=== PATIENT | female | born 1965 | race Caucasian/White ===

== ENCOUNTER 2016-05-06 13:16 | Inpatient (IN) | payer OTHER, MEDICARE ==
[~2016-05-06] VITALS: Ht 165.1 cm; Wt 103.4 kg
[~2016-05-06 13:16] MED LIST: ABILIFY10 MG PO; ABILIFY30 MG PO; ASPIRIN CHEWABL81 MG PO; ASPIRIN81 MG PO; ATARAX25 MG PO; AUGMENTIN 500-1 EACH PO; BIOFREEZE89 ML TOP; BISOPROLOL FUMAR5 MG PO; BUSPIRONE HCL15 MG PO; CARAFATE1 GM PO; CEFDINIR300 MG PO; CELEXA20 MG PO; CETIRIZINE HCL10 MG PO; COLACE100 MG PO; COLESTID 1GM TAB1 GM PO; DEPAKOTE ER250 MG PO; DEPAKOTE250 MG PO; ESTRACE1 MG PO; ESTRADIOL-NORE1 EAC1 PO; GLIPIZIDE 5 MG (5 MG PO; IMDUR 30MG TABL30 MG PO; KLOR-CON 1010 MEQ PO; KLOR-CON M 1010 MEQ PO; LACTINEX1 EACH PO; LASIX40 MG PO; LEVAQUIN500 MG PO; LEVEMIR100 UNIT/1 SC; LEVSIN0.125 MG PO; LISINOPRIL2.5 MG PO; LOMOTIL 2.5-0.1 EACH PO; LOMOTIL1 EACH PO; LOTRONEX1 MG PO; LYRICA 50MG CAP50 MG PO; MEDROL 4MG DOSEP4 MG PO; MUCINEX D ER 61 EACH PO; NEURONTIN300 MG PO; NITROLINGUAL12 GM SL; NOVOLOG DO100 UNIT/M SC; NYSTATIN100000 UNI PO; PEPCID AC20 MG PO; PHENERGAN25 M1 PO; PLAVIX75 M1 PO; PLAVIX75 MG PO; PRAVACHOL20 MG PO; PRAVACHOL40 MG PO; PREDNISONE 20MG20 MG PO; PROMETRIUM200 MG PO; PROTONIX20 MG PO; PROTONIX40 MG PO; PROVIGIL200 MG PO; SYMBICORT 1601 PUFFS INH; TESSALON PERLE100 MG PO; TRAZODONE 100M100 MG PO; TUDORZA PRESS400 MCG INH; VICODIN 10/3251 EACH PO; ZESTRIL2.5 MG PO; ZITHROMAX500 MG PO; ZOFRAN4 MG PO; ZYRTEC10 MG PO
[2016-05-06 16:17] LABS: BASOPHIL 0.5 % (0-2); EOSINOPHIL 2.7 % (0-5); HCT 34.6 % (37.0-47.0); HGB 10.6 g/dl (12.5-16.0); LYMPHOCYTE 20.4 % (15-48); MCHC 30.6 g/dL (32.0-36.0); MONOCYTE 8.6 % (0-12); MPV 9.7 fL (6.0-9.5); NEUTROPHIL 67.8 % (41-80); PLT 172 K/uL (150-400); RBC 4.07 M/uL (4.20-5.40); RDW 18.7 % (11.5-14.0); WBC 4.4 K/uL (4.0-10.5)
[2016-05-06 16:22] LABS: INR 0.96 (0.9-1.2); PROTHROMBIN TIME 12.4 SECONDS (11.7-14.0); PTT 27.1 SECONDS (23.2-31.4)
[2016-05-06 16:23] LABS: D-DIMER 0.44 ug/mLFEU (0.00-0.41)
[2016-05-06 16:35] LABS: ALBUMIN 3.5 g/dL (3.5-5.0); BILIRUBIN - TOTAL 0.3 mg/dL (0.1-1.0); GLOBULIN (CALCULATION) 2.6 g/dL (2.2-4.2); POTASSIUM 3.9 mmol/L (3.5-5.1); TOTAL PROTEIN 6.1 g/dL (6.4-8.3)
[2016-05-06 16:36] LABS: TROPONIN T < 0.010 ng/mL
[2016-05-06 16:40] LABS: PRO-BNP 467 pg/mL (0-125)
[2016-05-07 22:08] LABS: AMPHETAMINES NEGATIVE (NEGATIVE); BARBITURATES NEGATIVE (NEGATIVE); BENZODIAZEPINES NEGATIVE (NEGATIVE); COCAINE NEGATIVE (NEGATIVE); MARIJUANA (THC) NEGATIVE (NEGATIVE); METHADONE NEGATIVE (NEGATIVE); TRICYCLIC ANTIDEPRESSANT NEGATIVE (NEGATIVE)
[2016-05-08 04:20] LABS: HCT 34.9 % (37.0-47.0); HGB 10.7 g/dl (12.5-16.0); MCH 25.7 pg (25.0-31.0); MCHC 30.7 g/dL (32.0-36.0); MCV 83.7 fL (78.0-100.0); MPV 9.2 fL (6.0-9.5); RBC 4.17 M/uL (4.20-5.40); RDW 18.8 % (11.5-14.0); WBC 5.7 K/uL (4.0-10.5)
[2016-05-08 04:39] LABS: POTASSIUM 5.1 mmol/L (3.5-5.1)
[2016-05-09 05:25] LABS: HCT 37.4 % (37.0-47.0); HGB 11.6 g/dl (12.5-16.0); MCV 83.9 fL (78.0-100.0); RBC 4.46 M/uL (4.20-5.40); RDW 18.9 % (11.5-14.0); WBC 6.8 K/uL (4.0-10.5)
[2016-05-09 05:51] LABS: POTASSIUM 3.7 mmol/L (3.5-5.1)
--- NOTE | 2016-05-10 14:37 | NUR ---
REVIEWED DISCHARGE INSTRUCTIONS, MEDICATIONS, APPT TIMES WITH PT VERBALIZED UNDERSTANDING, PORT DEACCESSED WITHOUT DIFFICULTY
[2016-05-10] MEDS ORDERED: TUDORZA PRESS400 MCG INH (15:18)
[2016-05-10] MEDS ORDERED: LOMOTIL1 EACH PO (15:19)
[2016-05-10] MEDS ORDERED: BUMEX1 MG PO (15:19)
[2016-05-10] MEDS ORDERED: VOLTAREN **OUT75 MG PO (15:19)
[2016-05-10] MEDS ORDERED: ZYRTEC10 MG PO (15:20)
[2016-05-10] MEDS ORDERED: CELEXA20 MG PO (15:20)
[2016-05-10] MEDS ORDERED: GLUCOSAMINE1000 MG PO (15:21)
[2016-05-10] MEDS ORDERED: NEURONTIN300 MG PO (15:21)
[2016-05-10] MEDS ORDERED: ZOFRAN4 MG PO (15:22)
[2016-05-10] MEDS ORDERED: PROTONIX40 MG PO (15:22)
[2016-05-10] MEDS ORDERED: CARAFATE1 GM PO (15:24)
[2016-05-10] MEDS ORDERED: POTASSIUM CHLO10 MEQ PO (15:24)
[2016-05-10] MEDS ORDERED: TRAZODONE 50MG50 MG PO (15:25)
[2016-05-10] MEDS ORDERED: LACTINEX1 EACH PO (15:26)
[2016-05-10] MEDS ORDERED: PREDNISONE 10MG10 MG PO (15:27)
[2016-05-10] MEDS ORDERED: CHANTIX1 MG PO (15:28)
[2016-05-10] MEDS ORDERED: VENTOLIN (2.5 MG/3 M INH (15:29)
[2016-06-30] MEDS ORDERED: ISOSORBIDE MONO60 MG PO (13:15)
[2016-06-30] MEDS ORDERED: LASIX40 MG PO (13:30)
[2016-06-30] MEDS ORDERED: DEPAKOTE ER250 MG PO (13:31)
[2016-06-30] MEDS ORDERED: DESYREL50 MG PO (13:32)
[2016-06-30] MEDS ORDERED: PRAVACHOL40 MG PO (13:33)
[2016-06-30] MEDS ORDERED: MUCINEX 600MG600 MG PO (13:33)
[2016-06-30] MEDS ORDERED: LEVAQUIN750 MG PO (13:34)
[2016-09-08] MEDS ORDERED: AMPICILLIN TRI500 M1 PO (08:41)
[2016-09-08] MEDS ORDERED: STERAPRED PO (08:44)
[2016-09-24] MEDS ORDERED: FLONASE ALLER15.8 ML IN (11:00)
[2016-09-24] MEDS ORDERED: PREDNISONE 20MG20 MG PO (11:00)
[2016-10-17] MEDS ORDERED: PREDNISONE 10MG10 MG PO (12:01)
[2016-10-17] MEDS ORDERED: VIBRAMYCIN100 MG PO (12:03)
[2016-10-26] MEDS ORDERED: GLUCOTROL10 MG PO ×2 (08:44→10:24)
[2016-10-26] MEDS ORDERED: TRESIBA FL100 UNIT/1 SQ (10:32)
[2016-10-26] MEDS ORDERED: PREDNISONE TAPER PO (10:33)
[2016-10-26] MEDS ORDERED: NOVOLOG VI100 UNIT/1 SQ (13:10)
[2016-10-26] MEDS ORDERED: XANAX0.5 MG PO (13:12)
[2016-11-06] MEDS ORDERED: PHENERGAN25 M1 PO (11:59)
[2016-11-06] MEDS ORDERED: TUDORZA PRESS400 MCG INH (12:02)
[2016-11-06] MEDS ORDERED: DALIRESP500 MCG PO (12:02)
[2016-11-06] MEDS ORDERED: SPIRIVA18 MCG INH (12:03)
[2016-11-06] MEDS ORDERED: BUMEX1 MG PO (12:05)
== END 2016-05-10 14:19 | disposition home health service (06) | DRG 189 ==
LOC: FER 13:16 → FMS 18:00
PROVIDERS: Internal Medicine; Nurse Practitioner Family; ADMIT Internal Medicine
DX: J96.21 Acute and chronic respiratory failure with hypoxia (principal); E11.65 Type 2 diabetes mellitus with hyperglycemia; Z99.81 Dependence on supplemental oxygen; J44.1 Chronic obstructive pulmonary disease with (acute) exacerbation; I25.10 Atherosclerotic heart disease of native coronary artery without angina pectoris; F17.210 Nicotine dependence, cigarettes, uncomplicated; I10 Essential (primary) hypertension; E66.9 Obesity, unspecified; E78.5 Hyperlipidemia, unspecified; G47.33 Obstructive sleep apnea (adult) (pediatric); M54.5 Low back pain; G89.29 Other chronic pain; Z88.5 Allergy status to narcotic agent; Z91.040 Latex allergy status; Z88.8 Allergy status to other drugs, medicaments and biological substances; Z79.4 Long term (current) use of insulin; Z91.14 Patient's other noncompliance with medication regimen; Z79.899 Other long term (current) drug therapy; Z95.1 Presence of aortocoronary bypass graft; Z68.39 Body mass index [BMI] 39.0-39.9, adult
CPT/HCPCS: 36415; 36600; 71010; 71020; 80048; 80053; 80305; 82140; 82150; 82803; 82962; 83036; 83690; 83880; 84484; 85025; 85379; 85610; 85730; 87040; 93005; 94640; 94660; 94760; 94762; 97110; 97116; 97162; 97165; 97530-GP; C9113; J1644; J1815; J1885; J1956; J2930

== ENCOUNTER 2016-05-19 13:16 | Emergency (ER) | payer OTHER, MEDICARE ==
[~2016-05-19 13:16] MED LIST changes: +BUMEX1 MG PO; +CHANTIX1 MG PO; +GLUCOSAMINE1000 MG PO; +POTASSIUM CHLO10 MEQ PO; +PREDNISONE 10MG10 MG PO; +TRAZODONE 50MG50 MG PO; +VENTOLIN (2.5 MG/3 M INH; +VOLTAREN **OUT75 MG PO
[2016-05-19 14:49] LABS: BASOPHIL 0.5 % (0-2); EOSINOPHIL 1.2 % (0-5); HCT 34.8 % (37.0-47.0); HGB 10.7 g/dl (12.5-16.0); LYMPHOCYTE 14.3 % (15-48); MCH 25.7 pg (25.0-31.0); MCHC 30.7 g/dL (32.0-36.0); MCV 83.7 fL (78.0-100.0); MONOCYTE 10.3 % (0-12); MPV 9.5 fL (6.0-9.5); NEUTROPHIL 73.7 % (41-80); PLT 212 K/uL (150-400); RBC 4.16 M/uL (4.20-5.40); RDW 18.9 % (11.5-14.0)
[2016-05-19 14:50] LABS: WBC 6.5 K/uL (4.0-10.5)
[2016-05-19 14:59] LABS: INR 0.96 (0.9-1.2); PROTHROMBIN TIME 12.4 SECONDS (11.7-14.0)
[2016-05-19 15:07] LABS: ALBUMIN 3.7 g/dL (3.5-5.0); BILIRUBIN - TOTAL 0.3 mg/dL (0.1-1.0); CREATININE 0.9 mg/dL (0.5-1.0); GLOBULIN (CALCULATION) 2.7 g/dL (2.2-4.2); MAGNESIUM 1.87 mg/dL (1.40-2.10); POTASSIUM 4.6 mmol/L (3.5-5.1); TOTAL PROTEIN 6.4 g/dL (6.4-8.3)
[2016-05-19 15:11] LABS: CKMB 2.03 ng/mL (0.97-4.94); MYOGLOBIN 44 ng/mL (26-65); PRO-BNP 78 pg/mL (0-125); TROPONIN T < 0.010 ng/mL
[2016-06-30] MEDS ORDERED: ISOSORBIDE MONO60 MG PO (13:15)
[2016-06-30] MEDS ORDERED: LASIX40 MG PO (13:30)
[2016-06-30] MEDS ORDERED: DEPAKOTE ER250 MG PO (13:31)
[2016-06-30] MEDS ORDERED: DESYREL50 MG PO (13:32)
[2016-06-30] MEDS ORDERED: PRAVACHOL40 MG PO (13:33)
[2016-06-30] MEDS ORDERED: MUCINEX 600MG600 MG PO (13:33)
[2016-06-30] MEDS ORDERED: LEVAQUIN750 MG PO (13:34)
[2016-09-08] MEDS ORDERED: AMPICILLIN TRI500 M1 PO (08:41)
[2016-09-08] MEDS ORDERED: STERAPRED PO (08:44)
[2016-09-24] MEDS ORDERED: FLONASE ALLER15.8 ML IN (11:00)
[2016-09-24] MEDS ORDERED: PREDNISONE 20MG20 MG PO (11:00)
[2016-10-17] MEDS ORDERED: PREDNISONE 10MG10 MG PO (12:01)
[2016-10-17] MEDS ORDERED: VIBRAMYCIN100 MG PO (12:03)
[2016-10-26] MEDS ORDERED: GLUCOTROL10 MG PO ×2 (08:44→10:24)
[2016-10-26] MEDS ORDERED: TRESIBA FL100 UNIT/1 SQ (10:32)
[2016-10-26] MEDS ORDERED: PREDNISONE TAPER PO (10:33)
[2016-10-26] MEDS ORDERED: NOVOLOG VI100 UNIT/1 SQ (13:10)
[2016-10-26] MEDS ORDERED: XANAX0.5 MG PO (13:12)
[2016-11-06] MEDS ORDERED: PHENERGAN25 M1 PO (11:59)
[2016-11-06] MEDS ORDERED: TUDORZA PRESS400 MCG INH (12:02)
[2016-11-06] MEDS ORDERED: DALIRESP500 MCG PO (12:02)
[2016-11-06] MEDS ORDERED: SPIRIVA18 MCG INH (12:03)
[2016-11-06] MEDS ORDERED: BUMEX1 MG PO (12:05)
== END 2016-05-19 17:45 | disposition home or self-care (01) ==
LOC: FER 13:16
PROVIDERS: Emergency Medicine
DX: R07.9 Chest pain, unspecified (principal); S61.011A Laceration without foreign body of right thumb without damage to nail, initial encounter; R06.02 Shortness of breath; E11.9 Type 2 diabetes mellitus without complications; I25.10 Atherosclerotic heart disease of native coronary artery without angina pectoris; I11.9 Hypertensive heart disease without heart failure; J45.909 Unspecified asthma, uncomplicated; J44.9 Chronic obstructive pulmonary disease, unspecified; K21.9 Gastro-esophageal reflux disease without esophagitis; E78.5 Hyperlipidemia, unspecified; Z87.891 Personal history of nicotine dependence; Z82.49 Family history of ischemic heart disease and other diseases of the circulatory system; Z95.5 Presence of coronary angioplasty implant and graft
CPT/HCPCS: 36415; 71010; 80053; 82550; 82553; 83690; 83735; 83874; 83880; 84484; 85025; 85610; 85730; 90471; 90715; 93005

== ENCOUNTER 2016-05-24 10:21 | Emergency (ER) | payer OTHER, MEDICARE ==
[2016-05-24 10:51] LABS: BASOPHIL 0.3 % (0-2); EOSINOPHIL 1.3 % (0-5); LYMPHOCYTE 16.7 % (15-48); MCH 26.5 pg (25.0-31.0); MCHC 31.3 g/dL (32.0-36.0); MCV 84.7 fL (78.0-100.0); MONOCYTE 8.4 % (0-12); MPV 9.7 fL (6.0-9.5); NEUTROPHIL 73.3 % (41-80); PLT 208 K/uL (150-400); RBC 3.78 M/uL (4.20-5.40); RDW 19.5 % (11.5-14.0); WBC 6.3 K/uL (4.0-10.5)
[2016-05-24 10:56] LABS: INR 0.96 (0.9-1.2); PROTHROMBIN TIME 12.4 SECONDS (11.7-14.0); PTT 25.8 SECONDS (23.2-31.4)
[2016-05-24 11:05] LABS: MYOGLOBIN 34 ng/mL (26-65); TROPONIN T < 0.010 ng/mL
[2016-05-24 11:06] LABS: ALBUMIN 3.6 g/dL (3.5-5.0); BILIRUBIN - TOTAL 0.2 mg/dL (0.1-1.0); GLOBULIN (CALCULATION) 2.7 g/dL (2.2-4.2); MAGNESIUM 1.56 mg/dL (1.40-2.10); POTASSIUM 4.5 mmol/L (3.5-5.1); PRO-BNP 264 pg/mL (0-125); TOTAL PROTEIN 6.3 g/dL (6.4-8.3)
[2016-05-24 12:02] LABS: BILIRUBIN NEGATIVE (NEGATIVE); BLOOD NEGATIVE Ery/uL (NEGATIVE); CLARITY CLEAR (CLEAR); COLOR COLORLESS (YELLOW); GLUCOSE (U) 3+ mg/dL (NORMAL); KETONE (U) NEGATIVE (NEGATIVE); LEUKOCYTES NEGATIVE Leu/uL (NEGATIVE); NITRITE NEGATIVE (NEGATIVE); PROTEIN NEGATIVE (NEGATIVE); SPECIFIC GRAVITY <=1.005 (1.001-1.030); UROBILINOGEN 0.2 mg/dL (0.2-1.0); pH 6.5 (5.0-9.0)
[2016-05-24 12:18] LABS: LACTIC ACID 2.9 mmol/L (0.5-2.2)
[2016-06-30] MEDS ORDERED: ISOSORBIDE MONO60 MG PO (13:15)
[2016-06-30] MEDS ORDERED: LASIX40 MG PO (13:30)
[2016-06-30] MEDS ORDERED: DEPAKOTE ER250 MG PO (13:31)
[2016-06-30] MEDS ORDERED: DESYREL50 MG PO (13:32)
[2016-06-30] MEDS ORDERED: MUCINEX 600MG600 MG PO (13:33)
[2016-06-30] MEDS ORDERED: PRAVACHOL40 MG PO (13:33)
[2016-06-30] MEDS ORDERED: LEVAQUIN750 MG PO (13:34)
[2016-09-08] MEDS ORDERED: AMPICILLIN TRI500 M1 PO (08:41)
[2016-09-08] MEDS ORDERED: STERAPRED PO (08:44)
[2016-09-24] MEDS ORDERED: FLONASE ALLER15.8 ML IN (11:00)
[2016-09-24] MEDS ORDERED: PREDNISONE 20MG20 MG PO (11:00)
[2016-10-17] MEDS ORDERED: PREDNISONE 10MG10 MG PO (12:01)
[2016-10-17] MEDS ORDERED: VIBRAMYCIN100 MG PO (12:03)
[2016-10-26] MEDS ORDERED: GLUCOTROL10 MG PO ×2 (08:44→10:24)
[2016-10-26] MEDS ORDERED: TRESIBA FL100 UNIT/1 SQ (10:32)
[2016-10-26] MEDS ORDERED: PREDNISONE TAPER PO (10:33)
[2016-10-26] MEDS ORDERED: NOVOLOG VI100 UNIT/1 SQ (13:10)
[2016-10-26] MEDS ORDERED: XANAX0.5 MG PO (13:12)
[2016-11-06] MEDS ORDERED: PHENERGAN25 M1 PO (11:59)
[2016-11-06] MEDS ORDERED: TUDORZA PRESS400 MCG INH (12:02)
[2016-11-06] MEDS ORDERED: DALIRESP500 MCG PO (12:02)
[2016-11-06] MEDS ORDERED: SPIRIVA18 MCG INH (12:03)
[2016-11-06] MEDS ORDERED: BUMEX1 MG PO (12:05)
[2016-12-04] MEDS ORDERED: AZITHROMYCIN250 MG PO (13:14)
== END 2016-05-24 16:42 | disposition home or self-care (01) ==
LOC: FER 10:21
PROVIDERS: Emergency Medicine
DX: E11.65 Type 2 diabetes mellitus with hyperglycemia (principal); R00.0 Tachycardia, unspecified; R82.90 Unspecified abnormal findings in urine; J44.9 Chronic obstructive pulmonary disease, unspecified; Z88.5 Allergy status to narcotic agent; Z91.040 Latex allergy status; Z79.4 Long term (current) use of insulin
CPT/HCPCS: 36415; 71010; 80053; 81003; 82550; 82553; 83605; 83690; 83735; 83874; 83880; 84484; 85025; 85610; 85730; 87076; 87088; 87186; 93005; 93971; Q9967

== ENCOUNTER 2016-06-14 11:16 | Inpatient (IN) | payer OTHER, MEDICARE ==
[2016-06-14 20:41] LABS: BASOPHIL 0 % (0-2); EOSINOPHIL 0 % (0-5); HCT 30.9 % (37.0-47.0); HGB 9.3 g/dl (12.5-16.0); LYMPHOCYTE 5.5 % (15-48); MCH 25.9 pg (25.0-31.0); MCHC 30.1 g/dL (32.0-36.0); MCV 86.1 fL (78.0-100.0); MONOCYTE 0.5 % (0-12); MPV 8.5 fL (6.0-9.5); PLT 237 K/uL (150-400); RBC 3.59 M/uL (4.20-5.40); RDW 20.2 % (11.5-14.0); WBC 6.1 K/uL (4.0-10.5)
[2016-06-14 20:55] LABS: ALBUMIN 3.7 g/dL (3.5-5.0); BILIRUBIN - TOTAL 0.3 mg/dL (0.1-1.0); CREATININE 1.1 mg/dL (0.5-1.0); GLOBULIN (CALCULATION) 2.9 g/dL (2.2-4.2); MAGNESIUM 1.36 mg/dL (1.40-2.10); POTASSIUM 4.7 mmol/L (3.5-5.1); TOTAL PROTEIN 6.6 g/dL (6.4-8.3)
[2016-06-15 04:36] LABS: BASOPHIL 0 % (0-2); EOSINOPHIL 0 % (0-5); HCT 30.8 % (37.0-47.0); HGB 9.3 g/dl (12.5-16.0); MCH 25.8 pg (25.0-31.0); MCHC 30.2 g/dL (32.0-36.0); MCV 85.6 fL (78.0-100.0); MONOCYTE 1.8 % (0-12); MPV 8.6 fL (6.0-9.5); NEUTROPHIL 90.2 % (41-80); PLT 231 K/uL (150-400); RDW 20.2 % (11.5-14.0); WBC 6.1 K/uL (4.0-10.5)
[2016-06-15 04:53] LABS: MAGNESIUM 1.72 mg/dL (1.40-2.10); POTASSIUM 4.4 mmol/L (3.5-5.1)
[2016-06-16 05:06] LABS: HCT 32.8 % (37.0-47.0); HGB 9.7 g/dl (12.5-16.0); MCH 25.7 pg (25.0-31.0); MCHC 29.6 g/dL (32.0-36.0); MPV 9.1 fL (6.0-9.5); RBC 3.77 M/uL (4.20-5.40); RDW 20.1 % (11.5-14.0); WBC 8.2 K/uL (4.0-10.5)
[2016-06-16 05:21] LABS: POTASSIUM 4.1 mmol/L (3.5-5.1)
[2016-06-16] MEDS ORDERED: JANUVIA100 MG PO (13:42)
[2016-06-16] MEDS ORDERED: NORCO 5-325 TA1 EACH PO (13:43)
[2016-06-16] MEDS ORDERED: PREDNISONE 20MG20 MG PO (13:43)
[2016-06-16] MEDS ORDERED: VENTOLIN HFA IN18 GM INH (13:59)
[2016-06-16] MEDS ORDERED: LEVEMIR VI100 UNITS/ SQ (15:21)
[2016-06-16] MEDS ORDERED: LEVAQUIN250 MG PO (15:25)
[2016-06-30] MEDS ORDERED: ISOSORBIDE MONO60 MG PO (13:15)
[2016-06-30] MEDS ORDERED: LASIX40 MG PO (13:30)
[2016-06-30] MEDS ORDERED: DEPAKOTE ER250 MG PO (13:31)
[2016-06-30] MEDS ORDERED: DESYREL50 MG PO (13:32)
[2016-06-30] MEDS ORDERED: PRAVACHOL40 MG PO (13:33)
[2016-06-30] MEDS ORDERED: MUCINEX 600MG600 MG PO (13:33)
[2016-06-30] MEDS ORDERED: LEVAQUIN750 MG PO (13:34)
[2016-09-08] MEDS ORDERED: AMPICILLIN TRI500 M1 PO (08:41)
[2016-09-08] MEDS ORDERED: STERAPRED PO (08:44)
[2016-09-24] MEDS ORDERED: PREDNISONE 20MG20 MG PO (11:00)
[2016-09-24] MEDS ORDERED: FLONASE ALLER15.8 ML IN (11:00)
[2016-10-17] MEDS ORDERED: PREDNISONE 10MG10 MG PO (12:01)
[2016-10-17] MEDS ORDERED: VIBRAMYCIN100 MG PO (12:03)
[2016-10-26] MEDS ORDERED: GLUCOTROL10 MG PO ×2 (08:44→10:24)
[2016-10-26] MEDS ORDERED: TRESIBA FL100 UNIT/1 SQ (10:32)
[2016-10-26] MEDS ORDERED: PREDNISONE TAPER PO (10:33)
[2016-10-26] MEDS ORDERED: NOVOLOG VI100 UNIT/1 SQ (13:10)
[2016-10-26] MEDS ORDERED: XANAX0.5 MG PO (13:12)
[2016-11-06] MEDS ORDERED: PHENERGAN25 M1 PO (11:59)
[2016-11-06] MEDS ORDERED: TUDORZA PRESS400 MCG INH (12:02)
[2016-11-06] MEDS ORDERED: DALIRESP500 MCG PO (12:02)
[2016-11-06] MEDS ORDERED: SPIRIVA18 MCG INH (12:03)
[2016-11-06] MEDS ORDERED: BUMEX1 MG PO (12:05)
[2016-12-04] MEDS ORDERED: AZITHROMYCIN250 MG PO (13:14)
== END 2016-06-16 11:52 | disposition home health service (06) | DRG 189 ==
LOC: FER 11:16 → FTCU 17:42
PROVIDERS: Internal Medicine Cardiovascular Disease; ADMIT Internal Medicine
DX: J96.22 Acute and chronic respiratory failure with hypercapnia (principal); E11.40 Type 2 diabetes mellitus with diabetic neuropathy, unspecified; Z99.81 Dependence on supplemental oxygen; J44.1 Chronic obstructive pulmonary disease with (acute) exacerbation; F11.20 Opioid dependence, uncomplicated; I25.10 Atherosclerotic heart disease of native coronary artery without angina pectoris; Z91.19 Patient's noncompliance with other medical treatment and regimen; F17.210 Nicotine dependence, cigarettes, uncomplicated; I10 Essential (primary) hypertension; T38.0X5A Adverse effect of glucocorticoids and synthetic analogues, initial encounter; Z79.4 Long term (current) use of insulin; Z79.82 Long term (current) use of aspirin; Z79.01 Long term (current) use of anticoagulants; G47.33 Obstructive sleep apnea (adult) (pediatric); Z95.1 Presence of aortocoronary bypass graft; Z88.5 Allergy status to narcotic agent; Z91.040 Latex allergy status; E66.9 Obesity, unspecified; J96.21 Acute and chronic respiratory failure with hypoxia
CPT/HCPCS: 36415; 36600; 71010; 71020; 80048; 80053; 82803; 82962; 83036; 83735; 84484; 85025; 87804; 87899; 94010; 94640; 94660; 94664; 97162; J0456; J1815; J2930

== ENCOUNTER 2016-07-26 10:35 | Emergency (ER) | payer OTHER, MEDICARE ==
[~2016-07-26 10:35] MED LIST changes: +DESYREL50 MG PO; +ISOSORBIDE MONO60 MG PO; +JANUVIA100 MG PO; +LEVAQUIN250 MG PO; +LEVAQUIN750 MG PO; +LEVEMIR VI100 UNITS/ SQ; +MUCINEX 600MG600 MG PO; +NORCO 5-325 TA1 EACH PO; +VENTOLIN HFA IN18 GM INH
[2016-07-26 11:20] LABS: HCT 35.7 % (37.0-47.0); HGB 10.6 g/dl (12.5-16.0); MCH 25.5 pg (25.0-31.0); MCHC 29.7 g/dL (32.0-36.0); MPV 9.2 fL (6.0-9.5); RBC 4.15 M/uL (4.20-5.40); RDW 20.1 % (11.5-14.0); WBC 7.1 K/uL (4.0-10.5)
[2016-07-26 11:47] LABS: ALBUMIN 3.7 g/dL (3.5-5.0); BILIRUBIN - TOTAL 0.2 mg/dL (0.1-1.0); CREATININE 1.4 mg/dL (0.5-1.0); GLOBULIN (CALCULATION) 2.5 g/dL (2.2-4.2); POTASSIUM 4.4 mmol/L (3.5-5.1); TOTAL PROTEIN 6.2 g/dL (6.4-8.3)
[2016-09-08] MEDS ORDERED: AMPICILLIN TRI500 M1 PO (08:41)
[2016-09-08] MEDS ORDERED: STERAPRED PO (08:44)
[2016-09-24] MEDS ORDERED: FLONASE ALLER15.8 ML IN (11:00)
[2016-09-24] MEDS ORDERED: PREDNISONE 20MG20 MG PO (11:00)
[2016-10-17] MEDS ORDERED: PREDNISONE 10MG10 MG PO (12:01)
[2016-10-17] MEDS ORDERED: VIBRAMYCIN100 MG PO (12:03)
[2016-10-26] MEDS ORDERED: GLUCOTROL10 MG PO ×2 (08:44→10:24)
[2016-10-26] MEDS ORDERED: TRESIBA FL100 UNIT/1 SQ (10:32)
[2016-10-26] MEDS ORDERED: PREDNISONE TAPER PO (10:33)
[2016-10-26] MEDS ORDERED: NOVOLOG VI100 UNIT/1 SQ (13:10)
[2016-10-26] MEDS ORDERED: XANAX0.5 MG PO (13:12)
[2016-11-06] MEDS ORDERED: PHENERGAN25 M1 PO (11:59)
[2016-11-06] MEDS ORDERED: TUDORZA PRESS400 MCG INH (12:02)
[2016-11-06] MEDS ORDERED: DALIRESP500 MCG PO (12:02)
[2016-11-06] MEDS ORDERED: SPIRIVA18 MCG INH (12:03)
[2016-11-06] MEDS ORDERED: BUMEX1 MG PO (12:05)
[2016-12-04] MEDS ORDERED: AZITHROMYCIN250 MG PO (13:14)
== END 2016-07-26 15:25 | disposition home or self-care (01) ==
LOC: FER 10:35
PROVIDERS: Nurse Practitioner
DX: J44.1 Chronic obstructive pulmonary disease with (acute) exacerbation (principal); I11.9 Hypertensive heart disease without heart failure; M19.90 Unspecified osteoarthritis, unspecified site; F17.210 Nicotine dependence, cigarettes, uncomplicated; Z99.81 Dependence on supplemental oxygen; Z95.1 Presence of aortocoronary bypass graft; Z88.8 Allergy status to other drugs, medicaments and biological substances; Z91.040 Latex allergy status; Z79.51 Long term (current) use of inhaled steroids; Z79.82 Long term (current) use of aspirin; Z79.899 Other long term (current) drug therapy
CPT/HCPCS: 36415; 36600; 71020; 80053; 82803; 83880; 94640; J2930

== ENCOUNTER 2016-08-07 03:39 | Emergency (ER) | payer OTHER, MEDICARE ==
[2016-08-07 04:16] LABS: BASOPHIL 0.2 % (0-2); EOSINOPHIL 1.4 % (0-5); HCT 37.5 % (37.0-47.0); HGB 11.4 g/dl (12.5-16.0); LYMPHOCYTE 19.6 % (15-48); MCH 25.7 pg (25.0-31.0); MCHC 30.4 g/dL (32.0-36.0); MCV 84.5 fL (78.0-100.0); MONOCYTE 8.1 % (0-12); MPV 8.8 fL (6.0-9.5); NEUTROPHIL 70.7 % (41-80); PLT 274 K/uL (150-400); RBC 4.44 M/uL (4.20-5.40); RDW 19.1 % (11.5-14.0); WBC 8.5 K/uL (4.0-10.5)
[2016-08-07 04:48] LABS: PTT 25.8 SECONDS (23.2-31.4)
[2016-08-07 04:49] LABS: INR 0.92 (0.9-1.2)
[2016-08-07 04:53] LABS: TROPONIN T < 0.010 ng/mL
[2016-08-07 04:55] LABS: ALBUMIN 3.7 g/dL (3.5-5.0); BILIRUBIN - TOTAL 0.2 mg/dL (0.1-1.0); CREATININE 1.1 mg/dL (0.5-1.0); GLOBULIN (CALCULATION) 2.7 g/dL (2.2-4.2); POTASSIUM 3.9 mmol/L (3.5-5.1); TOTAL PROTEIN 6.4 g/dL (6.4-8.3)
[2016-08-07 04:56] LABS: PRO-BNP 136 pg/mL (0-125)
[2016-09-08] MEDS ORDERED: AMPICILLIN TRI500 M1 PO (08:41)
[2016-09-08] MEDS ORDERED: STERAPRED PO (08:44)
[2016-09-24] MEDS ORDERED: FLONASE ALLER15.8 ML IN (11:00)
[2016-09-24] MEDS ORDERED: PREDNISONE 20MG20 MG PO (11:00)
[2016-10-17] MEDS ORDERED: PREDNISONE 10MG10 MG PO (12:01)
[2016-10-17] MEDS ORDERED: VIBRAMYCIN100 MG PO (12:03)
[2016-10-26] MEDS ORDERED: GLUCOTROL10 MG PO ×2 (08:44→10:24)
[2016-10-26] MEDS ORDERED: TRESIBA FL100 UNIT/1 SQ (10:32)
[2016-10-26] MEDS ORDERED: PREDNISONE TAPER PO (10:33)
[2016-10-26] MEDS ORDERED: NOVOLOG VI100 UNIT/1 SQ (13:10)
[2016-10-26] MEDS ORDERED: XANAX0.5 MG PO (13:12)
[2016-11-06] MEDS ORDERED: PHENERGAN25 M1 PO (11:59)
[2016-11-06] MEDS ORDERED: DALIRESP500 MCG PO (12:02)
[2016-11-06] MEDS ORDERED: TUDORZA PRESS400 MCG INH (12:02)
[2016-11-06] MEDS ORDERED: SPIRIVA18 MCG INH (12:03)
[2016-11-06] MEDS ORDERED: BUMEX1 MG PO (12:05)
[2016-12-04] MEDS ORDERED: AZITHROMYCIN250 MG PO (13:14)
== END 2016-08-07 05:36 | disposition home or self-care (01) ==
LOC: FER 03:39
PROVIDERS: Emergency Medicine
DX: J44.1 Chronic obstructive pulmonary disease with (acute) exacerbation (principal); B37.2 Candidiasis of skin and nail; I11.9 Hypertensive heart disease without heart failure; I25.810 Atherosclerosis of coronary artery bypass graft(s) without angina pectoris; E11.9 Type 2 diabetes mellitus without complications; E78.5 Hyperlipidemia, unspecified; F17.210 Nicotine dependence, cigarettes, uncomplicated; Z87.19 Personal history of other diseases of the digestive system; Z88.5 Allergy status to narcotic agent; Z88.8 Allergy status to other drugs, medicaments and biological substances; Z91.040 Latex allergy status; Z79.51 Long term (current) use of inhaled steroids; Z79.84 Long term (current) use of oral hypoglycemic drugs; Z79.82 Long term (current) use of aspirin; Z79.02 Long term (current) use of antithrombotics/antiplatelets; Z79.899 Other long term (current) drug therapy; Z99.81 Dependence on supplemental oxygen; Z95.1 Presence of aortocoronary bypass graft
CPT/HCPCS: 36415; 36600; 71010; 80053; 82803; 83880; 84484; 85025; 85610; 85730; 87804; 87899; 93005; 94640; 94664; 94760; J2930

== ENCOUNTER 2016-08-07 20:57 | Emergency (ER) | payer OTHER, MEDICARE ==
[2016-08-07 23:22] LABS: BASOPHIL 0.1 % (0-2); EOSINOPHIL 0 % (0-5); HGB 11.6 g/dl (12.5-16.0); LYMPHOCYTE 4.7 % (15-48); MCH 25.4 pg (25.0-31.0); MCHC 30.5 g/dL (32.0-36.0); MCV 83.2 fL (78.0-100.0); MPV 9.1 fL (6.0-9.5); NEUTROPHIL 89.2 % (41-80); PLT 279 K/uL (150-400); RBC 4.57 M/uL (4.20-5.40); RDW 18.9 % (11.5-14.0); WBC 11.1 K/uL (4.0-10.5)
[2016-08-07 23:33] LABS: CREATININE 0.9 mg/dL (0.5-1.0); POTASSIUM 4.7 mmol/L (3.5-5.1)
[2016-09-08] MEDS ORDERED: AMPICILLIN TRI500 M1 PO (08:41)
[2016-09-08] MEDS ORDERED: STERAPRED PO (08:44)
[2016-09-24] MEDS ORDERED: FLONASE ALLER15.8 ML IN (11:00)
[2016-09-24] MEDS ORDERED: PREDNISONE 20MG20 MG PO (11:00)
[2016-10-17] MEDS ORDERED: PREDNISONE 10MG10 MG PO (12:01)
[2016-10-17] MEDS ORDERED: VIBRAMYCIN100 MG PO (12:03)
[2016-10-26] MEDS ORDERED: GLUCOTROL10 MG PO ×2 (08:44→10:24)
[2016-10-26] MEDS ORDERED: TRESIBA FL100 UNIT/1 SQ (10:32)
[2016-10-26] MEDS ORDERED: PREDNISONE TAPER PO (10:33)
[2016-10-26] MEDS ORDERED: NOVOLOG VI100 UNIT/1 SQ (13:10)
[2016-10-26] MEDS ORDERED: XANAX0.5 MG PO (13:12)
[2016-11-06] MEDS ORDERED: PHENERGAN25 M1 PO (11:59)
[2016-11-06] MEDS ORDERED: TUDORZA PRESS400 MCG INH (12:02)
[2016-11-06] MEDS ORDERED: DALIRESP500 MCG PO (12:02)
[2016-11-06] MEDS ORDERED: SPIRIVA18 MCG INH (12:03)
[2016-11-06] MEDS ORDERED: BUMEX1 MG PO (12:05)
[2016-12-04] MEDS ORDERED: AZITHROMYCIN250 MG PO (13:14)
== END 2016-08-08 01:25 | disposition home or self-care (01) ==
LOC: FER 20:57
PROVIDERS: Emergency Medicine
DX: E11.65 Type 2 diabetes mellitus with hyperglycemia (principal); I51.9 Heart disease, unspecified; F17.210 Nicotine dependence, cigarettes, uncomplicated; Z87.19 Personal history of other diseases of the digestive system; Z88.5 Allergy status to narcotic agent; Z79.84 Long term (current) use of oral hypoglycemic drugs; Z79.4 Long term (current) use of insulin; Z79.82 Long term (current) use of aspirin; Z99.81 Dependence on supplemental oxygen; Z95.1 Presence of aortocoronary bypass graft; Z95.5 Presence of coronary angioplasty implant and graft
CPT/HCPCS: 36415; 80048; 82009; 85025

== ENCOUNTER 2016-08-11 14:45 | Emergency (ER) | payer OTHER, MEDICARE ==
[2016-08-11 15:37] LABS: BASOPHIL 0.1 % (0-2); EOSINOPHIL 1.4 % (0-5); HCT 36.7 % (37.0-47.0); LYMPHOCYTE 16.1 % (15-48); MCH 25.4 pg (25.0-31.0); MCV 84.8 fL (78.0-100.0); MONOCYTE 7.2 % (0-12); MPV 9.1 fL (6.0-9.5); NEUTROPHIL 75.2 % (41-80); PLT 214 K/uL (150-400); RBC 4.33 M/uL (4.20-5.40)
[2016-08-11 15:41] LABS: WBC 7.9 K/uL (4.0-10.5)
[2016-08-11 15:46] LABS: BILIRUBIN NEGATIVE (NEGATIVE); BLOOD NEGATIVE Ery/uL (NEGATIVE); CLARITY CLEAR (CLEAR); COLOR YELLOW (YELLOW); GLUCOSE (U) 3+ mg/dL (NORMAL); KETONE (U) NEGATIVE (NEGATIVE); LEUKOCYTES NEGATIVE Leu/uL (NEGATIVE); NITRITE NEGATIVE (NEGATIVE); PROTEIN NEGATIVE (NEGATIVE); SPECIFIC GRAVITY <=1.005 (1.001-1.030); UROBILINOGEN 0.2 mg/dL (0.2-1.0); pH 5.5 (5.0-9.0)
[2016-08-11 15:56] LABS: CREATININE 0.8 mg/dL (0.5-1.0)
[2016-09-08] MEDS ORDERED: AMPICILLIN TRI500 M1 PO (08:41)
[2016-09-08] MEDS ORDERED: STERAPRED PO (08:44)
[2016-09-24] MEDS ORDERED: FLONASE ALLER15.8 ML IN (11:00)
[2016-09-24] MEDS ORDERED: PREDNISONE 20MG20 MG PO (11:00)
[2016-10-17] MEDS ORDERED: PREDNISONE 10MG10 MG PO (12:01)
[2016-10-17] MEDS ORDERED: VIBRAMYCIN100 MG PO (12:03)
[2016-10-26] MEDS ORDERED: GLUCOTROL10 MG PO ×2 (08:44→10:24)
[2016-10-26] MEDS ORDERED: TRESIBA FL100 UNIT/1 SQ (10:32)
[2016-10-26] MEDS ORDERED: PREDNISONE TAPER PO (10:33)
[2016-10-26] MEDS ORDERED: NOVOLOG VI100 UNIT/1 SQ (13:10)
[2016-10-26] MEDS ORDERED: XANAX0.5 MG PO (13:12)
[2016-11-06] MEDS ORDERED: PHENERGAN25 M1 PO (11:59)
[2016-11-06] MEDS ORDERED: DALIRESP500 MCG PO (12:02)
[2016-11-06] MEDS ORDERED: TUDORZA PRESS400 MCG INH (12:02)
[2016-11-06] MEDS ORDERED: SPIRIVA18 MCG INH (12:03)
[2016-11-06] MEDS ORDERED: BUMEX1 MG PO (12:05)
[2016-12-04] MEDS ORDERED: AZITHROMYCIN250 MG PO (13:14)
== END 2016-08-11 17:33 | disposition home or self-care (01) ==
LOC: FER 14:45
PROVIDERS: Nurse Practitioner Family
DX: J43.9 Emphysema, unspecified (principal); L03.115 Cellulitis of right lower limb; J45.901 Unspecified asthma with (acute) exacerbation; E11.9 Type 2 diabetes mellitus without complications; I10 Essential (primary) hypertension; F17.210 Nicotine dependence, cigarettes, uncomplicated; Z23 Encounter for immunization; Z88.5 Allergy status to narcotic agent; Z88.8 Allergy status to other drugs, medicaments and biological substances; Z91.040 Latex allergy status; Z79.84 Long term (current) use of oral hypoglycemic drugs; Z79.82 Long term (current) use of aspirin; Z79.51 Long term (current) use of inhaled steroids; Z79.02 Long term (current) use of antithrombotics/antiplatelets; Z79.899 Other long term (current) drug therapy; Z95.5 Presence of coronary angioplasty implant and graft
CPT/HCPCS: 36415; 71020; 80048; 81003; 85025; 90471; 90715; 93005; J2930

== ENCOUNTER 2016-08-16 11:44 | Emergency (ER) | payer OTHER, MEDICARE ==
[2016-08-16 12:44] LABS: BASOPHIL 0.1 % (0-2); EOSINOPHIL 1.3 % (0-5); HCT 32.8 % (37.0-47.0); HGB 9.8 g/dl (12.5-16.0); LYMPHOCYTE 13.8 % (15-48); MCH 25.5 pg (25.0-31.0); MCHC 29.9 g/dL (32.0-36.0); MCV 85.4 fL (78.0-100.0); MONOCYTE 7.9 % (0-12); MPV 9.1 fL (6.0-9.5); NEUTROPHIL 76.9 % (41-80); PLT 201 K/uL (150-400); RBC 3.84 M/uL (4.20-5.40); RDW 19.6 % (11.5-14.0); WBC 8.9 K/uL (4.0-10.5)
[2016-08-16 12:59] LABS: CREATININE 1.4 mg/dL (0.5-1.0); POTASSIUM 4.4 mmol/L (3.5-5.1)
[2016-09-08] MEDS ORDERED: AMPICILLIN TRI500 M1 PO (08:41)
[2016-09-08] MEDS ORDERED: STERAPRED PO (08:44)
[2016-09-24] MEDS ORDERED: FLONASE ALLER15.8 ML IN (11:00)
[2016-09-24] MEDS ORDERED: PREDNISONE 20MG20 MG PO (11:00)
[2016-10-17] MEDS ORDERED: PREDNISONE 10MG10 MG PO (12:01)
[2016-10-17] MEDS ORDERED: VIBRAMYCIN100 MG PO (12:03)
[2016-10-26] MEDS ORDERED: GLUCOTROL10 MG PO ×2 (08:44→10:24)
[2016-10-26] MEDS ORDERED: TRESIBA FL100 UNIT/1 SQ (10:32)
[2016-10-26] MEDS ORDERED: PREDNISONE TAPER PO (10:33)
[2016-10-26] MEDS ORDERED: NOVOLOG VI100 UNIT/1 SQ (13:10)
[2016-10-26] MEDS ORDERED: XANAX0.5 MG PO (13:12)
[2016-11-06] MEDS ORDERED: PHENERGAN25 M1 PO (11:59)
[2016-11-06] MEDS ORDERED: DALIRESP500 MCG PO (12:02)
[2016-11-06] MEDS ORDERED: TUDORZA PRESS400 MCG INH (12:02)
[2016-11-06] MEDS ORDERED: SPIRIVA18 MCG INH (12:03)
[2016-11-06] MEDS ORDERED: BUMEX1 MG PO (12:05)
[2016-12-04] MEDS ORDERED: AZITHROMYCIN250 MG PO (13:14)
== END 2016-08-16 14:55 | disposition home or self-care (01) ==
LOC: FER 11:44
PROVIDERS: Nurse Practitioner
DX: S43.51XA Sprain of right acromioclavicular joint, initial encounter (principal); M54.2 Cervicalgia; R03.1 Nonspecific low blood-pressure reading; I51.9 Heart disease, unspecified; E11.9 Type 2 diabetes mellitus without complications; J44.9 Chronic obstructive pulmonary disease, unspecified; Z95.1 Presence of aortocoronary bypass graft; Z79.84 Long term (current) use of oral hypoglycemic drugs; Z88.5 Allergy status to narcotic agent; Z88.8 Allergy status to other drugs, medicaments and biological substances; Z91.040 Latex allergy status; Z79.4 Long term (current) use of insulin; Z79.82 Long term (current) use of aspirin; Z79.51 Long term (current) use of inhaled steroids; Z79.899 Other long term (current) drug therapy; W19.XXXA Unspecified fall, initial encounter; Y93.84 Activity, sleeping
CPT/HCPCS: 36415; 72040; 73030; 80048; 85025; 93005

== ENCOUNTER 2016-08-28 15:31 | Emergency (ER) | payer OTHER, MEDICARE ==
[2016-09-08] MEDS ORDERED: AMPICILLIN TRI500 M1 PO (08:41)
[2016-09-08] MEDS ORDERED: STERAPRED PO (08:44)
[2016-09-24] MEDS ORDERED: PREDNISONE 20MG20 MG PO (11:00)
[2016-09-24] MEDS ORDERED: FLONASE ALLER15.8 ML IN (11:00)
[2016-10-17] MEDS ORDERED: PREDNISONE 10MG10 MG PO (12:01)
[2016-10-17] MEDS ORDERED: VIBRAMYCIN100 MG PO (12:03)
[2016-10-26] MEDS ORDERED: GLUCOTROL10 MG PO ×2 (08:44→10:24)
[2016-10-26] MEDS ORDERED: TRESIBA FL100 UNIT/1 SQ (10:32)
[2016-10-26] MEDS ORDERED: PREDNISONE TAPER PO (10:33)
[2016-10-26] MEDS ORDERED: NOVOLOG VI100 UNIT/1 SQ (13:10)
[2016-10-26] MEDS ORDERED: XANAX0.5 MG PO (13:12)
[2016-11-06] MEDS ORDERED: PHENERGAN25 M1 PO (11:59)
[2016-11-06] MEDS ORDERED: TUDORZA PRESS400 MCG INH (12:02)
[2016-11-06] MEDS ORDERED: DALIRESP500 MCG PO (12:02)
[2016-11-06] MEDS ORDERED: SPIRIVA18 MCG INH (12:03)
[2016-11-06] MEDS ORDERED: BUMEX1 MG PO (12:05)
[2016-12-04] MEDS ORDERED: AZITHROMYCIN250 MG PO (13:14)
== END 2016-08-28 18:49 | disposition home or self-care (01) ==
LOC: FER 15:31
DX: S42.402A Unspecified fracture of lower end of left humerus, initial encounter for closed fracture (principal); E11.9 Type 2 diabetes mellitus without complications; J45.909 Unspecified asthma, uncomplicated; J44.9 Chronic obstructive pulmonary disease, unspecified; Z88.8 Allergy status to other drugs, medicaments and biological substances; Z88.5 Allergy status to narcotic agent; Z91.040 Latex allergy status; F17.210 Nicotine dependence, cigarettes, uncomplicated; W19.XXXA Unspecified fall, initial encounter
CPT/HCPCS: 73080; 99283

== ENCOUNTER 2016-09-03 16:26 | Emergency (ER) | payer OTHER, MEDICARE ==
[2016-09-03 19:14] LABS: BASOPHIL 0.2 % (0-2); EOSINOPHIL 0.7 % (0-5); HCT 39.4 % (37.0-47.0); HGB 12.2 g/dl (12.5-16.0); LYMPHOCYTE 12.8 % (15-48); MCH 25.7 pg (25.0-31.0); MCV 83.1 fL (78.0-100.0); MONOCYTE 7.5 % (0-12); MPV 9.2 fL (6.0-9.5); NEUTROPHIL 78.8 % (41-80); PLT 230 K/uL (150-400); RBC 4.74 M/uL (4.20-5.40); RDW 21.4 % (11.5-14.0); WBC 13.1 K/uL (4.0-10.5)
[2016-09-03 19:30] LABS: ALBUMIN 3.8 g/dL (3.5-5.0); BILIRUBIN - TOTAL 0.3 mg/dL (0.1-1.0); CREATININE 1.8 mg/dL (0.5-1.0); GLOBULIN (CALCULATION) 2.5 g/dL (2.2-4.2); POTASSIUM 4.5 mmol/L (3.5-5.1); TOTAL PROTEIN 6.3 g/dL (6.4-8.3)
[2016-09-08] MEDS ORDERED: AMPICILLIN TRI500 M1 PO (08:41)
[2016-09-08] MEDS ORDERED: STERAPRED PO (08:44)
[2016-09-24] MEDS ORDERED: PREDNISONE 20MG20 MG PO (11:00)
[2016-09-24] MEDS ORDERED: FLONASE ALLER15.8 ML IN (11:00)
[2016-10-17] MEDS ORDERED: PREDNISONE 10MG10 MG PO (12:01)
[2016-10-17] MEDS ORDERED: VIBRAMYCIN100 MG PO (12:03)
[2016-10-26] MEDS ORDERED: GLUCOTROL10 MG PO ×2 (08:44→10:24)
[2016-10-26] MEDS ORDERED: TRESIBA FL100 UNIT/1 SQ (10:32)
[2016-10-26] MEDS ORDERED: PREDNISONE TAPER PO (10:33)
[2016-10-26] MEDS ORDERED: NOVOLOG VI100 UNIT/1 SQ (13:10)
[2016-10-26] MEDS ORDERED: XANAX0.5 MG PO (13:12)
[2016-11-06] MEDS ORDERED: PHENERGAN25 M1 PO (11:59)
[2016-11-06] MEDS ORDERED: DALIRESP500 MCG PO (12:02)
[2016-11-06] MEDS ORDERED: TUDORZA PRESS400 MCG INH (12:02)
[2016-11-06] MEDS ORDERED: SPIRIVA18 MCG INH (12:03)
[2016-11-06] MEDS ORDERED: BUMEX1 MG PO (12:05)
[2016-12-04] MEDS ORDERED: AZITHROMYCIN250 MG PO (13:14)
== END 2016-09-03 20:40 | disposition home or self-care (01) ==
LOC: FER 16:26
PROVIDERS: Emergency Medicine
DX: K61.0 Anal abscess (principal); E11.22 Type 2 diabetes mellitus with diabetic chronic kidney disease; N18.6 End stage renal disease; K21.9 Gastro-esophageal reflux disease without esophagitis; F17.200 Nicotine dependence, unspecified, uncomplicated; Z88.5 Allergy status to narcotic agent; Z91.040 Latex allergy status; Z79.82 Long term (current) use of aspirin; Z79.899 Other long term (current) drug therapy
CPT/HCPCS: 36415; 36600; 71010; 80053; 82803; 85025; 87070; 87077; 87186; 87205; 94760

== ENCOUNTER 2016-11-22 18:50 | Emergency (ER) | payer OTHER, MEDICARE ==
[~2016-11-22 18:50] MED LIST changes: +AMPICILLIN TRI500 M1 PO; +DALIRESP500 MCG PO; +FLONASE ALLER15.8 ML IN; +GLUCOTROL10 MG PO; +NOVOLOG VI100 UNIT/1 SQ; +PREDNISONE TAPER PO; +SPIRIVA18 MCG INH; +STERAPRED PO; +TRESIBA FL100 UNIT/1 SQ; +VIBRAMYCIN100 MG PO; +XANAX0.5 MG PO
[2016-11-22 20:38] LABS: BASOPHIL 0.1 % (0-2); EOSINOPHIL 0.7 % (0-5); HCT 45.4 % (37.0-47.0); HGB 14.1 g/dl (12.5-16.0); MCH 29.1 pg (25.0-31.0); MCHC 31.1 g/dL (32.0-36.0); MCV 93.8 fL (78.0-100.0); MONOCYTE 7.6 % (0-12); MPV 9.1 fL (6.0-9.5); NEUTROPHIL 73.6 % (41-80); PLT 151 K/uL (150-400); RBC 4.84 M/uL (4.20-5.40); RDW 19.7 % (11.5-14.0); WBC 7.5 K/uL (4.0-10.5)
[2016-11-22 20:58] LABS: LACTIC ACID 1.1 mmol/L (0.5-2.2)
[2016-11-22 21:01] LABS: ALBUMIN 3.4 g/dL (3.5-5.0); BILIRUBIN - TOTAL 0.2 mg/dL (0.1-1.0); CREATININE 0.6 mg/dL (0.5-1.0); TOTAL PROTEIN 6.4 g/dL (6.4-8.3)
[2016-11-22 21:06] LABS: TROPONIN T < 0.010 ng/mL
[2016-11-22 21:08] LABS: PRO-BNP 171 pg/mL (0-125)
== END 2016-11-22 21:50 | disposition home or self-care (01) ==
LOC: FER 18:50
PROVIDERS: Internal Medicine
DX: J44.1 Chronic obstructive pulmonary disease with (acute) exacerbation (principal); E87.6 Hypokalemia; F17.200 Nicotine dependence, unspecified, uncomplicated; Z88.5 Allergy status to narcotic agent; Z91.040 Latex allergy status
CPT/HCPCS: 36415; 36600; 71020; 80053; 82803; 83605; 83880; 84484; 85025; 85610; 85730; 93005; 94640; 94760; J1885; J2930

== ENCOUNTER 2016-11-23 07:38 | Emergency (ER) | payer OTHER, MEDICARE ==
[2016-11-23 08:06] LABS: BASOPHIL 0 % (0-2); EOSINOPHIL 0 % (0-5); HCT 43.3 % (37.0-47.0); HGB 13.3 g/dl (12.5-16.0); LYMPHOCYTE 7.1 % (15-48); MCH 28.4 pg (25.0-31.0); MCHC 30.7 g/dL (32.0-36.0); MCV 92.5 fL (78.0-100.0); MONOCYTE 1.4 % (0-12); MPV 9.3 fL (6.0-9.5); NEUTROPHIL 91.5 % (41-80); PLT 157 K/uL (150-400); RBC 4.68 M/uL (4.20-5.40); RDW 19.3 % (11.5-14.0); WBC 6.2 K/uL (4.0-10.5)
[2016-11-23 08:28] LABS: CREATININE 0.7 mg/dL (0.5-1.0)
== END 2016-11-23 11:43 | disposition home or self-care (01) ==
LOC: FER 07:38
PROVIDERS: Internal Medicine
DX: E11.65 Type 2 diabetes mellitus with hyperglycemia (principal); J44.9 Chronic obstructive pulmonary disease, unspecified; F17.200 Nicotine dependence, unspecified, uncomplicated; Z79.4 Long term (current) use of insulin; Z88.5 Allergy status to narcotic agent; Z91.040 Latex allergy status
CPT/HCPCS: 36415; 36600; 80048; 82009; 82803; 85025; 94640